=== PATIENT | female | born 1985 | race Caucasian/White ===

== ENCOUNTER 2017-04-02 02:44 | Inpatient (IN) | payer SELFPAY ==
[~2017-04-02] VITALS: Ht 175.3 cm; Wt 74.4 kg
--- NOTE | ~2017-04-02 | ER ---
PATIENT'S NAME: CORRINE NEVILLE [facility] AGE: 31 Y [address] ROOM: [address] [address] LOCATION: [facility] [place] ADMIT DATE: 04/02/2017 ER/Outpatient Report DISCHARGE DATE: FAMILY PHYSICIAN: Danny Shaffer MD ATTENDING PHYSICIAN: RONAL JOYCE Admission date and time documented on the medical record. I saw the patient at 0300 hours. CHIEF COMPLAINT: Nausea, vomiting, acute alcohol intoxication, anxiety, headache and elevated blood sugars. HISTORY OF PRESENT ILLNESS: This patient is a 31-year-old female who has a known alcohol problem. She went through detox rehab and then relapsed. Over the past 3 weeks, she had been drinking heavily about 750 mL of vodka daily. Also smokes tobacco, usually about a pack of cigarettes a day. She is an insulin-dependent diabetic on an insulin pump. Blood sugar has been running in the 300s. She was concerned that she was getting in trouble because she has had nausea and vomiting today along with severe headache. She has been in diabetic ketoacidosis before. She also came in thinking that she could be and she also had a global headache with nausea and vomiting. No diarrhea. No urinary frequency, urgency, or dysuria. No joint or muscle swelling, redness, or pain. No skin eruptions or rash. Little bit lightheaded and dizzy, but no syncope. No fall or trauma. No recent coughs, colds, or flus. No eyes, ears, nose, throat, neck, or spine pain. The patient does have a history as stated above, insulin-dependent diabetes mellitus with an insulin pump. She does have history of bipolar disorder with anxiety, depression, and ADHD. She has a history of illicit drug abuse with meth abuse, marijuana abuse, benzodiazepine abuse, tobacco and alcohol abuse. HOME MEDICATIONS: See attached medication list. ALLERGIES: NONE. SOCIAL HISTORY: The patient smokes a pack of cigarettes per day. Has been consuming about 750 mL of vodka daily over the past 3 weeks with a history of alcoholism. She has a history of illicit drug use involving meth, benzos, marijuana. SIGNIFICANT PAST MEDICAL HISTORY: Insulin-dependent diabetes mellitus on insulin pump, alcoholism, tobaccoism, PATIENT'S NAME: CORRINE NEVILLE [facility] AGE: 31 Y [address] ROOM: [address] [address] LOCATION: [facility] [place] ADMIT DATE: 04/02/2017 ER/Outpatient Report DISCHARGE DATE: FAMILY PHYSICIAN: Danny Shaffer MD ATTENDING PHYSICIAN: RONAL JOYCE gastritis, meth abuse, marijuana abuse, pneumonia, ADHD, bipolar disorder with anxiety, depression, diabetic ketoacidosis. OPERATIONS: x2. REVIEW OF SYSTEMS: All systems reviewed by me are negative with the exception of those discussed in the history of present illness. PHYSICAL EXAMINATION: VITAL SIGNS: Temperature 97.1 tympanic, pulse 94, respirations 18, blood pressure 137/87, O2 saturation on room air is 98%. HEAD: Normocephalic. No abrasion, contusion, laceration, swelling of the scalp or face. EYES: Extraocular muscles intact. PERRL. EARS, NOSE, THROAT: Clear. Mucous membranes little dry. NECK: No nuchal rigidity. No thyromegaly or cervical lymphadenopathy. LUNGS: Clear. Good air flow. No rales, rhonchi, or wheezes. HEART: Regular. Pulses are palpable. No chest wall or ribcage pain to palpation. ABDOMEN: Soft, nondistended, nontender. Active bowel tones. No organomegaly or abnormal mass palpable. EXTREMITIES: Without peripheral edema, cyanosis, or deformity. Neurovascularly intact. SKIN: Clear. No skin eruptions or rash. LABORATORY DATA: Urine drug screen was positive for benzodiazepines. Medical blood alcohol was 0.265. Serum acetaminophen and salicylate levels were normal. CMS was normal except for an elevated blood sugar 187, potassium 3.5, magnesium was 2.0. CRP was less than 0.29. Serum quantitative HCG was normal less than 1.0. Serum acetone was negative. Venous pH was 7.4, lactate was 2.1. Procalcitonin was 0.05. Urine showed 0 to 2 whites, 2-5 reds, 2-5 epithelial cells, negative bacteria per high-powered field, negative nitrites. White count was 4700, 38 segs, 51 lymphs, 7 monos, 2 eos, 1 baso. Hemoglobin 16.2 with hematocrit 45.4, platelet count was 193,000. PTT was 26, pro-time is 10.4 with an INR 0.99. EMERGENCY DEPARTMENT COURSE: I did start the patient on IV normal saline, fluids. Gave her 2 L here in the emergency room then 150 mL an hour. Gave her Zofran 8 mg total IV in the emergency room for nausea and vomiting. Gave her Ativan 1 mg IV for anxiety. IMPRESSION: PATIENT'S NAME: CORRINE NEVILLE [facility] AGE: 31 Y [address] ROOM: [place] [address] LOCATION: [facility] [place] ADMIT DATE: 04/02/2017 ER/Outpatient Report DISCHARGE DATE: FAMILY PHYSICIAN: Danny Shaffer MD ATTENDING PHYSICIAN: RONAL JOYCE 1. Acute alcohol intoxication with chronic alcohol abuse. The patient has been binge drinking for the past 3 weeks. Medical blood alcohol was 0.265. 2. Insulin-dependent diabetes mellitus on insulin pump. She has nausea and vomiting, but is not ketotic and is not acidotic. Blood glucose is 187. 3. History of bipolar disorder with anxiety and depression. 4. History of attention-deficit/hyperactivity disorder. 5. Tobacco abuse. 6. Past history of illicit drug abuse involving methamphetamine, marijuana and benzodiazepine. PLAN: Initially, I talked with Dr. Jin for Dr. Shaffer. Dr. Jin asked me to have the hospitalist take care of this patient. I did talk with Dr. Joyce, hospitalist. He will accept the patient and admit the patient to the hospital, Med-Surg for detox, further evaluation and treatment. Discussion ensued with the patient concerning my findings and recommendations, she agrees and wants detox. MD JUSTIN MOROCHO/modl /[id number] d: 04/02/17517 t: 04/02/171809, OUTPATIENT REPORT
--- NOTE | ~2017-04-02 | HP ---
[facility] 31 [facility] [address] ROOM: [id number] [place], [place] [address] [place] [facility] [place] DATE: 04/02/2017 History & Physical DISCHARGE DATE: FAMILY PHYSICIAN: Danny Shaffer MD ATTENDING PHYSICIAN: RONAL JOYCE DATE OF SERVICE: CHIEF COMPLAINT: Alcohol intoxication. HISTORY OF PRESENT ILLNESS: This is a 31-year-old female with a longstanding history of alcohol use disorder. The patient was sober for a little while, but then about 2 weeks ago, she relapsed again into alcohol drinking. Since then, she has been drinking on an average 1 pint of vodka per day and her last drink was last night around 10 p.m. After midnight, she has been having about 2 episodes of bilious content of vomiting and feels nauseous. She also has some tremor in her hands bilaterally. Otherwise, she denies any other symptoms. The patient came here voluntarily for alcohol detoxification. The patient denies any other symptoms. REVIEW OF SYSTEMS: As mentioned in history of present illness. All other systems were reviewed and they were negative except those mentioned in history of present illness. PAST MEDICAL HISTORY: 1. Diabetes type 1. 2. Bipolar disorder. 3. Anxiety disorder. 4. Depression. 5. Alcohol use disorder. ALLERGIES: NONE. HOME MEDICATIONS: Currently, it is being reconciled. SOCIAL HISTORY: The patient is active cigarette smoker and alcohol user, occasionally uses marijuana and methamphetamine. The patient smoker about half-pack per day on average for many years and also drinks alcohol average on a daily basis about 1 pint of vodka especially in the last 2 weeks. Last time, she used metanephrine was few months ago according to the patient. PATIENT'S NAME: [facility] AGE: 31 Y [address] ROOM: [address] [place], [place] [address] LOCATION: [facility] [place] ADMIT DATE: 04/02/2017 History & Physical DISCHARGE DATE: FAMILY PHYSICIAN: Danny Shaffer MD ATTENDING PHYSICIAN: RONAL JOYCE FAMILY HISTORY: Family members has alcoholism and also type 1 diabetes as well. PAST SURGICAL HISTORY: in the past. PHYSICAL EXAMINATION: VITAL SIGNS: AT the time of evaluation, temperature 97.1, heart rate 94, respirations 18, saturation 98% on room air, and blood pressure 137/87. GENERAL APPEARANCE: The patient is alert and oriented x3, in no acute distress. HEENT: Pupils equally round and reactive to light. Extraocular muscles intact. Anicteric sclerae. Nasal turbinates are normal bilaterally. Dry oral mucosa. NECK: No JVD. CARDIOVASCULAR: Regular rate and rhythm. No murmur, no rubs, no gallops. Normal S1 and normal S2. RESPIRATORY: Clear. No rales, no rhonchi, no wheezing, no crackles. ABDOMEN: Obese, soft, nontender, nondistended, bowel sounds present, and no mass. EXTREMITIES: No edema in upper or lower extremities. NEUROLOGICAL: Grossly nonfocal. SKIN: No ulcer, no rash, no cyanosis. LABORATORY DATA: Venous blood gas show pH of 7.4, pCO2 58, bicarbonate 35.9. Lactic acid 2.1. White blood cells 4.7, hemoglobin 16.2, hematocrit 45.4, and platelet 193. Glucose 187, BUN 6, creatinine 0.8, sodium 140, potassium 3.5, chloride 103, CO2 30, calcium 8.6, total protein 8.4, albumin 4.1, AST 24, ALT 22, alkaline phosphatase 84, total bilirubin 0.4, magnesium 2.0, anion gap 10.5, GFR more than 60. INR 0.99 and PTT 26. Urinalysis negative for UTI. Urine drug screen positive for benzodiazepine. Alcohol level 0.265. Tylenol less than 2. Aspirin level less than 2.8. Acetone negative. CRP less than 0.29. Urinary test negative. Procalcitonin 0.05. IMAGING STUDIES: None. ASSESSMENT AND PLAN: 1. Regarding her alcohol intoxication with high-risk of alcohol withdrawal: Aspiration, fall precaution, and also seizure precaution. Intravenous fluids with banana bag followed by normal saline. Encourage oral intake. Zofran p.r.n. for nausea. Start her on [facility] alcohol detox pathway protocol. In the meantime, I am going to give her p.o. Valium 10 mg one PATIENT'S NAME: CORRINE NEVILLE [facility] AGE: 31 Y [address] ROOM: [place] [address] [place] [facility] [place] ADMIT DATE: 04/02/2017 History & Physical DISCHARGE DATE: FAMILY PHYSICIAN: Danny Shaffer MD ATTENDING PHYSICIAN: RONAL JOYCE dose right now given that she seems a bit restless at the moment. Intravenous Ativan p.r.n. for active seizure. Further plan will depend on clinical course. 2. Regarding her type 1 diabetes: I will check her hemoglobin A1c. Her glycemia was 187 on arrival. The patient states she is very compliant with the insulin pump. Given that she is not in diabetic ketoacidosis, I will let her continue her insulin pump, and I also asked her to tell the nurses about the glucose level at the breakfast, lunch, dinner, and at bedtime so we can document in the [employer]. If necessary, I will be adding a subcutaneous sliding scale if necessary. Watch her closely. family educator consult in AM. 3. Regarding her depression: Her home medication currently is being reconciled and needs to be addressed once it is ready. 4. Regarding her tobacco use: Give her nicotine patch 21 g transdermal daily. 5. Deep vein thrombosis prophylaxis: SC Lovenox. 6. She is a full code. Time spent in care on the day of admission 35 minutes, where 15 minutes was spent on chart review. The remainder of the time was spent on interview and physical examination and also counseling, which includes going over the plan of care with the patient and answer all her questions and concerns to her satisfaction. Further plan will depend on clinical course. RONAL JOYCE MD CC/modl /[id number] D: [id number] T: [id number] HISTORY & PHYSICAL
--- NOTE | ~2017-04-02 | DS ---
PATIENT'S NAME: CORRINE NEVILLE [facility] AGE: 31 Y [address] ROOM: [place] [id number] [place] [facility] [place]: 04/02/2017 Discharge Summary DISCHARGE DATE: 04/03/2017 FAMILY PHYSICIAN: Danny Shaffer MD ATTENDING PHYSICIAN: Diogenes Maier PRIMARY DIAGNOSES: 1. Acute alcohol intoxication. 2. Alcohol abuse disorder. 3. History of polysubstance use. 4. Insulin-dependent diabetes mellitus with hyperglycemia. 5. Depression. 6. Tobaccoism. OPERATIONS AND PROCEDURES: None. HISTORY OF PRESENTING ILLNESS/REASON FOR ADMISSION: Please refer to the H and P dictated on 04/02/2017. HOSPITAL COURSE: The patient was admitted to the hospital as noted above with presumptive diagnosis of acute alcohol intoxication. She had presented to the emergency room after a period of binge drinking. She was admitted for supportive care and alcohol detox. She was hyperglycemic, but not acidotic at the time of her admission. She did remain on her insulin pump and was generally compliant with nursing care and regular Accu-Cheks. She remained hemodynamically stable over the course of her hospital stay. She did not demonstrate significant evidence for alcohol withdrawal. She did not demonstrate any suicidal thinking or homicidal thinking, but was recommended for outpatient psychiatry care. By the end of the second day of her hospital stay, it was felt she would be stable enough for discharge to home with plans for close clinical followup with primary care provider, Dr. Danny Shaffer, as well as outpatient followup at [facility] for continued psychiatric care and counseling. DISCHARGE INSTRUCTIONS: Diet: ADA 1800-calorie per day as tolerated. Activity: As tolerated. MEDICATIONS: 1. Folate 1 mg p.o. daily. 2. Thiamine 100 mg p.o. daily. PATIENT'S NAME: CORRINE NEVILLE [facility] AGE: 31 Y [address] ROOM: [address] [address] [place] [facility] [place]: 04/02/2017 Discharge Summary DISCHARGE DATE: 04/03/2017 FAMILY PHYSICIAN: Danny Shaffer MD ATTENDING PHYSICIAN: Diogenes Maier 3. Vitamin B12, 2500 mcg p.o. daily. 4. Zofran 4 mg p.o. q.6 hours p.r.n. nausea. 5. Wellbutrin SR 150 mg p.o. daily. 6. Zoloft 100 mg p.o. b.i.d. 7. Biotin 800 mcg p.o. daily. 8. Topamax 50 mg p.o. q.h.s. 9. Insulin lispro per pump. 10. Alprazolam 0.5 mg t.i.d. p.r.n. anxiety. 11. Zinc 220 mg p.o. daily. FOLLOW UP: She will follow up with Dr. Danny Shaffer in 1 day. She will follow up at [facility] in 2 weeks. CONDITION ON DISCHARGE: Fair. Total time spent on discharge process was 35 minutes. MD MYRON NOBLE/romero /[id number] d: 04/04/17 0322 t: 04/07/17 0832, DISCHARGE SUMMARY
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
[~2017-04-02 02:44] MED LIST: BIOTIN 800 MCG1 EACH PO; FOLIC ACID1 MG PO; HUMALOG LISPRO; HUMALOG100 UNIT/2 SUB-Q; MAG-OX-400(241400 MG PO; NICODERM/HABITR21 MG TRANS; PRENATAL 1+1)(P1 TAB PO; THERA-VITE W/ B1 TAB PO; THIAMINE HCL100 MG PO; TOPAMAX25 MG PO; TOPAMAX50 MG PO; WELLBUTRIN SR150 MG PO; XANAX0.25 MG PO; XANAX0.5 MG PO; ZOLOFT100 M1 PO
[2017-04-02 03:29] LABS: BASOPHIL # 0.1 K/uL (0.0-0.2); BASOPHIL % 1.1 %; EOSINOPHIL # 0.1 K/uL (0.0-0.5); EOSINOPHIL % 2.1 %; HEMATOCRIT 45.4 % (33.0-46.0); HEMOGLOBIN 16.2 g/dL (11.0-15.0); IMMATURE GRANULOCYTE % 0.2 %; LYMPHOCYTE # 2.4 K/uL (0.8-4.0); LYMPHOCYTE % 51.2 %; MCH 31.8 pg (27.0-34.0); MCHC 35.7 gm/dL (32.0-36.5); MONOCYTE # 0.3 K/uL (0.0-1.0); MONOCYTE % 7.2 %; MPV 10.3 fl (9.4-12.4); NEUTROPHIL # (ANC) 1.8 K/uL (1.8-7.8); NEUTROPHIL % 38.2 %; NRBC % 0 /100WBC (0-0.00); PLATELET COUNT 193 K/uL (150-450); RDW-CV 14.1 % (11.9-14.6); WBC 4.7 K/uL (4.0-11.0)
[2017-04-02 03:31] LABS: BILIRUBIN URINE NEGATIVE (NEGATIVE); BLOOD URINE 50 /UL (NEGATIVE); COLOR URINE YELLOW (YELLOW); GLUCOSE URINE 1000 mg/dL (NEGATIVE); KETONE URINE NEGATIVE (NEGATIVE); LEUKOCYTES URINE NEGATIVE /UL (NEGATIVE); NITRITE URINE NEGATIVE (NEGATIVE); PROTEIN URINE 30 mg/dL (NEGATIVE); SPEC GRAVITY URINE 1.015 (1.003-1.035); TURBIDITY URINE CLEAR (CLEAR); UROBILINOGEN URINE NORMAL (NORMAL)
[2017-04-02 03:33] LABS: BICARBONATE 35.9 mmol/L (18.0-23.0); LACTATE 2.1 mEq/L (0.50-1.60); PCO2 58 mmHg (35-45)
[2017-04-02 03:34] LABS: PO2 29 mmHg (80-90)
[2017-04-02 03:41] LABS: INR - (THERAPEUTIC) 0.99 (0.92-1.07); PROTIME 10.4 SECONDS (9.8-11.4); PTT 26 SECONDS (25-32)
[2017-04-02 03:42] LABS: BACTERIA URINE NEGATIVE (NEGATIVE); WBC URINE 0-2 #/HPF (NEGATIVE)
[2017-04-02 03:55] LABS: BARBITURATE NEGATIVE (NEGATIVE); OPIATES NEGATIVE (NEGATIVE)
[2017-04-02 03:55] LABS: ALBUMIN 4.1 gm/dL (3.5-5.0); ALK PHOS 84 IU/L (33-138); ALT 22 IU/L (12-78); ANION GAP 10.5 (10.0-19.0); AST 24 IU/L (10-40); BLOOD UREA NITROGEN 6 mg/dL (6-24); CALCIUM 8.6 mg/dL (8.5-10.5); CHLORIDE 103 mMol/L (96-110); CO2 30 mMol/L (22-32); CREATININE 0.8 mg/dL (0.5-1.1); ESTIMATED GFR (MDRD EQUATION) > 60; POTASSIUM 3.5 mMol/L (3.7-5.1); SODIUM 140 mMol/L (135-145); TOTAL BILIRUBIN 0.4 mg/dL (0.0-1.5); TOTAL PROTEIN 8.4 g/dL (6.0-8.4)
[2017-04-02 04:00] LABS: AMPHETAMINE NEGATIVE (NEGATIVE); COCAINE NEGATIVE (NEGATIVE)
[2017-04-02] MEDS ORDERED: ZINCATE (50 MG220 MG PO (05:37)
[2017-04-02] MEDS ORDERED: VITAMIN B122500 MCG PO (05:38)
--- NOTE | 2017-04-02 05:52 | NUR ---
PT ARRIVED FROM ER AT 0510, ALCOHOL DETOX FOR DR JOYCE. AFSHIN WAS >0.2 ON ADMIT. PT REPORTS NAUSEA AND VOMIT X2, ANXIETY. HX INCLUDES BIPOLAR, PANIC ATTACKS, DEPRESSION, C SECTION X2, PSORIASIS, DM TYPE 1, HAS INSULIN PUMP, HX CUTTING A TEEN FOR ATTENTION SEEKING. SMOKES 1PPD, REPORTS DRINKING 1/2 PINT VODKA ON WEEK NIGHTS AND AROUND 1 PINT ON WEEKENDS. IS . NO KNOWN ALLERGIES. SALINE LOCK TO L AC. WILL START BANANA BAG, CIWA SCORING AND DETOX PATHWAY, PLACED IN SEIZURE PRECAUTIONS.
[2017-04-02 10:42] LABS: ANION GAP 10.5 (10.0-19.0); BLOOD UREA NITROGEN 7 mg/dL (6-24); CALCIUM 7.7 mg/dL (8.5-10.5); CHLORIDE 109 mMol/L (96-110); CO2 29 mMol/L (22-32); CREATININE 0.6 mg/dL (0.5-1.1); ESTIMATED GFR (MDRD EQUATION) > 60; POTASSIUM 3.5 mMol/L (3.7-5.1); SODIUM 145 mMol/L (135-145)
[2017-04-02 10:51] LABS: MAGNESIUM 1.8 mg/dL (1.8-2.6); PHOSPHORUS 3.5 mg/dL (2.5-4.9)
--- NOTE | 2017-04-02 10:59 | NUR ---
Diabetes center note: 0930 Patient is sleeping and only responds when asked to do simple commands with insulin pump. Patient is reminded that she needs to write down all of her blood sugars on log sheet at bedside. Basal rates are written on order set and patient has signed the consent form on admission to be able to utilize her own insulin pump while she is in hospital. Reveiwed basic safety tips and patient agrees to notify nursing staff if she is having a low blood sugar. Provided Diabetes Management booklet and Assessment form for patient to complete, at this time patient is not willing to complete, will attempt on-going educatioin when time is appropriate. A1C 9.2 % on admission
[2017-04-02] MEDS ORDERED: ONDANSETRON ODT4 MG PO (15:14)
--- NOTE | 2017-04-02 16:07 | NUR ---
Diabetes center note: Talked to Samantha primary care nurse on MSU several times throughout the shift. Patient was not eating this a.m., so blood sugar did drop, but once patient started eating, blood sugar has been in the 100-109 range for past several hours. Basal rate continues to run as programmed in pump. Patient is starting to by more alert and cooperative with staff. Provided a blood glucose meter as spouse has not yet brought up those supplies yet. Will continue to follow throughout hospital stay Did provide Assessment form for patient to complete when she starts feeling better.
--- NOTE | 2017-04-02 18:03 | NUR ---
Significant Event: Patient very sleepy this morning but awakens easily. After lunch patient is awake alert and oriented. Took a shower. Seizure precautions. 1 assist. Insulin pump intact. Patient taking her own blood sugars but need to check with her and remind her to write them on the log sheet. Had some lower blood sugars today 64/69 when she was nauseated this morning and not eating. childbirth educator is following. CIWA scoring. Oral Ativan given x2. IV fluids running. Follow up:
--- NOTE | 2017-04-03 03:59 | NUR ---
Significant Event: PT AO. VSS ON RA, AFEBRILE. CIWA SCORES HAVE BEEN <8 ALL SHIFT, NO PRN MEDS GIVEN. TOLERATING REGULAR DIET. PT HAS OWN INSULIN PUMP. NEEDS REMINDERS TO CHECK BLOOD SUGARS. 2100 WAS 179. IVF RUNNING TO [facility]. Follow up: CIWA SCORES
[2017-04-03 04:24] LABS: ANION GAP 9.8 (10.0-19.0); BLOOD UREA NITROGEN 8 mg/dL (6-24); CALCIUM 8.1 mg/dL (8.5-10.5); CHLORIDE 107 mMol/L (96-110); CO2 25 mMol/L (22-32); CREATININE 0.7 mg/dL (0.5-1.1); ESTIMATED GFR (MDRD EQUATION) > 60; MAGNESIUM 1.9 mg/dL (1.8-2.6); POTASSIUM 3.8 mMol/L (3.7-5.1); SODIUM 138 mMol/L (135-145)
--- NOTE | 2017-04-03 10:18 | NUR ---
Diabetes note 0930 CDE talked to patient, reminded her to complete the Diabetes Survival Skills checklist today. New log sheet is provided and reminded her to record all blood sugars and insulin doses on this sheet. Discussed with patient how alcohol and drugs and smoking adversely affect blood sugars and diabetes control, type 1. Patient states she is "thinking about rehab" but states she is worried about keeping her job, she works at [employer], spouse has health insurance for the family. A1C 9.2 %, patient agree of uncontrolled blood sugars and states last A1C in Oct 2016 was 7 %. Will assess further educational needs when time is appropriate. More blood sugar testing strips provided and she states her doesn't know where her meter is at home.
--- NOTE | 2017-04-03 11:35 | NUR ---
SPOKE TO PATIENT REGARDING CM AND OUR ROLE. PATIENT IS LAYING IN BED WITH HER EYE CLOSED AND DOES NOT MAKE ANY EFFORT TO OPEN HER EYES AND TALK TO ME. SHE TELLS ME " I AM TIRED" PRESENTED TO HER THE OPTION OF LIST OF OUTPT TREATMENT PLACES IN [facility] AND SHE TELLS ME THAT SHE WOULD LIKE THE INFORMATION. I PLACED THE INFORMATION ON THE BESIDE TABLE. SHE TELLS ME THAT SHE WILL GO TO TREATMENT IF "IT WORKS WITH MY WORK SCHEDULE." I ASKED PARESHT IF SHE HAS ANY OTHER DISCHARGE NEEDS OR CONCERNS SHE DENIES ANY AT THIS TIME.
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
== END 2017-04-03 14:15 | disposition disaster alternative care site (69) | DRG 897 ==
LOC: GMED 02:44 → GMSU 04:46
PROVIDERS: Emergency Medicine; Nurse Practitioner Family; ADMIT Internal Medicine
DX: F10.129 Alcohol abuse with intoxication, unspecified (principal); E10.65 Type 1 diabetes mellitus with hyperglycemia; F31.9 Bipolar disorder, unspecified; F41.9 Anxiety disorder, unspecified; F32.9 Major depressive disorder, single episode, unspecified; F17.210 Nicotine dependence, cigarettes, uncomplicated; F15.10 Other stimulant abuse, uncomplicated; F12.10 Cannabis abuse, uncomplicated; Z79.4 Long term (current) use of insulin
CPT/HCPCS: G0108; G0480; J1650; J2060; J2405; J3411; J3480; J7030; J7040

== ENCOUNTER 2017-04-12 10:45 | Emergency (ER) | payer SELFPAY ==
--- NOTE | ~2017-04-12 | ER ---
PATIENT'S NAME: CORRINE NEVILLE [facility] AGE: 32 Y [address] ROOM: [place] [address] LOCATION: [facility] ADMIT DATE: 04/12/2017 ER/Outpatient Report DISCHARGE DATE: 04/12/2017 FAMILY PHYSICIAN: Danny Shaffer MD ATTENDING PHYSICIAN: Troy Gomez CHIEF COMPLAINT: Ear injury. HISTORY OF PRESENT ILLNESS: Approximately half an hour prior to arrival, the patient was cleaning her ears with a Q-tip when her 4-year-old hit her arm. This caused the Q-tip to enter her ear causing significant pain and bleeding. She denies any dizziness or changes in her hearing. She is worried about the blood. She came right in. She has not done anything for it. PAST MEDICAL HISTORY: Documented on the record and reviewed by me. SOCIAL HISTORY: Documented on the record and reviewed by me. MEDICATIONS: Documented on the record and reviewed by me. ALLERGIES: DOCUMENTED ON THE RECORD AND REVIEWED BY ME. REVIEW OF SYSTEMS: All systems were reviewed and negative except as noted in the HPI. PHYSICAL EXAMINATION: VITAL SIGNS: Blood pressure 129/85, pulse 87, respiratory rate is 20, temperature 96.6, SpO2 is 96% on room air. Pain is rated 5/10. GENERAL: Age-appropriate female, upright on the exam chair, in no apparent pain or distress. NEUROLOGIC: Awake and alert. GCS is 15. No focal deficits. No asymmetry. No obvious hearing loss. HEENT: Normocephalic, atraumatic. Eyes are PERRL. The right TM is bloody, most prominent in the superior-posterior quadrant. No clear TM perforation, no bubbles. Scant blood in the canal. No obvious canal injuries. No visible abnormalities posterior to the TM. The remainder of the cranial nerve exam is grossly unremarkable. Eyes are PERRL. Oropharynx is clear. NECK: Supple. Trachea is midline. HEART: Regular. PATIENT'S NAME: CORRINE NEVILLE [facility] AGE: 32 Y [address] ROOM: [place], [place] [address] LOCATION: [facility] ADMIT DATE: 04/12/2017 ER/Outpatient Report DISCHARGE DATE: 04/12/2017 FAMILY PHYSICIAN: Danny Shaffer MD ATTENDING PHYSICIAN: Troy Gomez LUNGS: Even and unlabored respirations. ABDOMEN: Appeared benign. EXTREMITIES: Warm and well perfused. SKIN: Without obvious abnormalities. LABORATORY DATA AND X-RAYS: None. IMPRESSION: Right tympanic membrane injury with possible perforation. EMERGENCY DEPARTMENT COURSE: The patient was seen and evaluated as above. I contacted Dr. Arias, applications systems engineer, for evaluation and recommendations. Dr. Arias is recommending no specific interventions at this time other than to keep the area clean and do not submerge it. He will see her in 3 weeks for a routine followup. She should follow up with him sooner if there is any decrease in hearing, significant uncontrolled pain, or any dizziness. All questions were answered, and the patient was discharged in good condition. MD GABI BUNDY/romero /[id number] d: 04/12/172301 t: 04/21/17 0721, OUTPATIENT REPORT
[~2017-04-12 10:45] MED LIST changes: +ONDANSETRON ODT4 MG PO; +VITAMIN B122500 MCG PO; +ZINCATE (50 MG220 MG PO
== END 2017-04-12 11:09 | disposition disaster alternative care site (69) ==
LOC: GACC 10:45
DX: S09.21XA Traumatic rupture of right ear drum, initial encounter (principal); F17.210 Nicotine dependence, cigarettes, uncomplicated; F32.9 Major depressive disorder, single episode, unspecified; Z79.4 Long term (current) use of insulin; Z79.899 Other long term (current) drug therapy; E11.9 Type 2 diabetes mellitus without complications; W22.8XXA Striking against or struck by other objects, initial encounter

== ENCOUNTER 2017-06-10 19:17 | Emergency (ER) | payer OTHER ==
--- NOTE | ~2017-06-10 | ER ---
PATIENT'S NAME: [facility] AGE: 32 Y [address] ROOM: [place] [address] LOCATION: [facility] ADMIT DATE: 06/10/2017 ER/Outpatient Report DISCHARGE DATE: 06/10/2017 FAMILY PHYSICIAN: Danny Shaffer MD ATTENDING PHYSICIAN: Pieter Borjas HISTORY OF PRESENT ILLNESS: This is a 32-year-old female who presents today with chief complaint of elevated blood sugars for one week. She says they have been over 500 for about a week and she feels sort of tired and really thirsty, so is concerned that she is in DKA. She is insulin-dependent diabetic for which she has an insulin pump. She also reports that she is currently , she thinks around 6 weeks. She denies any abdominal pain. No chest pain, no shortness of breath. Plus nausea, but no vomiting. No pelvic pain. No abdominal pain. No leakage of fluid. No vaginal bleeding. No pain with urination. She is status. PAST MEDICAL HISTORY: Includes insulin-dependent diabetes. SURGICAL HISTORY: x2. SOCIAL HISTORY: She smokes one pack per day and has done so for the last 6 years. 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 She was previously drinking 750 mL of vodka daily, but she quit about 1 month ago. Denies any drug use. MEDICATIONS: Please see med list. ALLERGIES: NONE. REVIEW OF SYSTEMS: Reviewed by me with the exception of those discussed in HPI. PHYSICAL EXAMINATION: VITAL SIGNS: The patient is 5 feet 10 inches. She weighs 75.7 kilos. Blood pressure is 142/83, heart rate 99, respiratory rate 18, temperature is 98.2, saturations are 99% on room air. GENERAL: The patient does not appear in any acute distress. She is nontoxic. She is not lethargic. She walks into the ER without any difficulty. She has moist mucous membranes. PATIENT'S NAME: [facility] AGE: 32 Y [address] ROOM: [place] [address] LOCATION: [facility] ADMIT DATE: 06/10/2017 ER/Outpatient Report DISCHARGE DATE: 06/10/2017 FAMILY PHYSICIAN: Danny Shaffer MD ATTENDING PHYSICIAN: Pieter Borjas HEENT: Her pupils are equal and reactive to light. She does not have pale conjunctiva. She has moist mucous membranes. She has no cervical lymphadenopathy. She has no nuchal rigidity. HEART: Regular rate and rhythm at this time about 90 beats per minute. She is not tachycardic. She is mildly hypertensive. Good capillary refill. LUNGS: Lung sounds are clear. She has no labored breathing, tachypnea, or accessory muscle use, and has been satting 99% on room air. ABDOMEN: She has no epigastric tenderness. No right upper quadrant tenderness, no right lower quadrant tenderness, no left lower quadrant tenderness, no suprapubic tenderness, no CVA tenderness bilaterally. EXTREMITIES: She has no pedal edema. She has no rash. She feels warm, dry, and intact. MUSCULOSKELETAL: She has full range of motion of bilateral knees and shoulders. Her gait is within normal limits. NEURO: She is A and O x3. She is speaking in full sentences. Her GCS is 15. Cranial nerves 2 through 12 are intact. She answers questions appropriately. EMERGENCY ROOM COURSE: We did a fingerstick glucose, it was 343, did proceed to check for any signs of infection and to make sure she was not in DKA, so her CMS shows sodium 135, potassium 3.6, chloride 103, CO2 of 23, anion gap 12.6, BUN is 6, creatinine is 1.1, total bilirubin is 0.3, alkaline phosphatase 76, AST 10, ALT 18, and GFR is 60. CBC shows a white count of 7.1, H and H is 15.6/43.8, platelets are 232. She has no bandemia. Her urine shows negative leukocytes, negative nitrites, 1000 glucose, but negative for ketones, negative for wbc's and rare bacteria. Her HCG quant is 7029. Procalcitonin is 0.18. Her VBG shows a pH of 7.36, pCO2 is 45, pO2 is 35, HCO3 is 25.4. Lactic is 2.3. Urinalysis as above. The patient is able to tolerate fluids at this time. She is not actively vomiting or retching. She does not require NG nor any antinausea medications. She is not in DKA at this time. She is afebrile. She has no other red flags on physical exam or history. She says that she does follow up with brake press operator. I asked that she follow up with her soon so they can get better control of her sugar. She understands reasons to come back to the ER sooner. IMPRESSION: Hyperglycemia without ketosis. PIETER BORJAS MD CAW/joshl PATIENT'S NAME: [facility] AGE: 32 Y [address] ROOM: [place] [address] LOCATION: ED ADMIT DATE: 06/10/2017 ER/Outpatient Report DISCHARGE DATE: 06/10/2017 FAMILY PHYSICIAN: Danny Shaffer MD ATTENDING PHYSICIAN: Pieter Borjas /[id number] d: 06/11/17 0451 t: 06/13/17 0510, OUTPATIENT REPORT
[2017-06-10 19:42] LABS: BILIRUBIN URINE NEGATIVE (NEGATIVE); BLOOD URINE 10 /UL (NEGATIVE); COLOR URINE YELLOW (YELLOW); GLUCOSE URINE 1000 mg/dL (NEGATIVE); KETONE URINE NEGATIVE (NEGATIVE); LEUKOCYTES URINE NEGATIVE /UL (NEGATIVE); NITRITE URINE NEGATIVE (NEGATIVE); PROTEIN URINE NEGATIVE (NEGATIVE); SPEC GRAVITY URINE 1.005 (1.003-1.035); TURBIDITY URINE CLEAR (CLEAR); UROBILINOGEN URINE NORMAL (NORMAL)
[2017-06-10 19:49] LABS: LACTATE 2.3 mEq/L (0.50-1.60); PCO2 45 mmHg (35-45)
[2017-06-10 19:50] LABS: BASOPHIL # 0.1 K/uL (0.0-0.2); BASOPHIL % 0.8 %; BICARBONATE 25.4 mmol/L (18.0-23.0); EOSINOPHIL # 0.2 K/uL (0.0-0.5); EOSINOPHIL % 2.1 %; HEMATOCRIT 43.8 % (33.0-46.0); HEMOGLOBIN 15.6 g/dL (11.0-15.0); IMMATURE GRANULOCYTE % 0.1 %; LYMPHOCYTE # 2.3 K/uL (0.8-4.0); LYMPHOCYTE % 32.3 %; MCH 32.6 pg (27.0-34.0); MCHC 35.6 gm/dL (32.0-36.5); MCV 91.4 fl (83.0-98.0); MONOCYTE # 0.4 K/uL (0.0-1.0); MONOCYTE % 5.9 %; MPV 10.6 fl (9.4-12.4); NEUTROPHIL # (ANC) 4.2 K/uL (1.8-7.8); NEUTROPHIL % 58.8 %; NRBC % 0 /100WBC (0-0.00); PO2 35 mmHg (80-90); RBC 4.79 M/uL (3.50-5.50); WBC 7.1 K/uL (4.0-11.0)
[2017-06-10 19:52] LABS: PLATELET COUNT 232 K/uL (150-450); RDW-CV 11.9 % (11.9-14.6)
[2017-06-10 19:57] LABS: BACTERIA URINE RARE (NEGATIVE); EPITHELIAL URINE NEGATIVE #/HPF (NEGATIVE); RBC URINE 0-2 #/HPF (NEGATIVE); WBC URINE NEGATIVE #/HPF (NEGATIVE)
[2017-06-10 20:13] LABS: ALBUMIN 3.7 gm/dL (3.5-5.0); ANION GAP 12.6 (10.0-19.0); CALCIUM 8.8 mg/dL (8.5-10.5); CREATININE 1.1 mg/dL (0.5-1.1); POTASSIUM 3.6 mMol/L (3.7-5.1); TOTAL PROTEIN 7.6 g/dL (6.0-8.4)
[2017-06-10 20:15] LABS: TOTAL BILIRUBIN 0.3 mg/dL (0.0-1.5)
== END 2017-06-10 21:01 | disposition disaster alternative care site (69) ==
LOC: GMED 19:17
PROVIDERS: Emergency Medicine
DX: O24.111 Pre-existing type 2 diabetes mellitus, in pregnancy, first trimester (principal); E11.65 Type 2 diabetes mellitus with hyperglycemia; O99.331 Smoking (tobacco) complicating pregnancy, first trimester; F17.210 Nicotine dependence, cigarettes, uncomplicated; Z79.899 Other long term (current) drug therapy; Z96.41 Presence of insulin pump (external) (internal); Z79.4 Long term (current) use of insulin; Z3A.01 Less than 8 weeks gestation of pregnancy